=== PATIENT | male | born 1950 | race Two or more races ===

== ENCOUNTER 2020-09-08 12:40 | Inpatient (IN) | payer BC, OTHER ==
[~2020-09-08] VITALS: Ht 165.1 cm; Wt 74.8 kg
[2020-09-08] MEDS ORDERED: CARVEDILOL25 MG (13:47)
[2020-09-08] MEDS ORDERED: METFORMIN HCL500 M3 (13:48)
[2020-09-08] MEDS ORDERED: LOTREL 10-20 M1 EACH (13:48)
[2020-09-08] MEDS ORDERED: FENOFIBRATE150 MG (13:48)
--- NOTE | 2020-09-08 13:49 | NUR ---
SE RECIBE PTE. MASCULINO ALERTA CONCIENTE Y ORIENTADO EN COMPANIA DE FAMILIAR PTE. REFIERE TOS JAQUELIN SUDORACION ESCALOFRIOS NAUSEAS. LE COMENZARON SINTOMAS E9 DE NOVIEMBRE Y FUE DX. COVI POSITIVO POR VIA NASAL MERA NO CALDERON NATY.
--- NOTE | 2020-09-08 15:49 | NUR ---
PACIENTE ALERTA Y ORIENTADO EN TIEMPO LUGAR Y PERSONA. RN DANIEL ORIENTA SOBRE TRATAMIENDO ORDENADO, EL MISMO VERBALIZA ENTENDER. RN COLECTA MUESTRAS ORDENADAS HACIENDO USO DE MEDIDAS ASEPTICAS CORRESPONDIENTES. PTE EN ESPERA DE RESULTADOS PARA RE-EVALUACION MEDICA Y ESTUDIO CT. SE MANTIENE EN OBSERVACION POR CAMBIOS EN MUKHERJEE CONDICION.
== END 2020-09-15 12:29 | disposition home or self-care (01) | DRG 177 ==
LOC: ER 12:40 → MEDJ 22:12
PROVIDERS: ADMIT Internal Medicine; ATTEND Internal Medicine
PROC: BW24ZZZ Computerized Tomography (CT Scan) of Chest and Abdomen (ICD-10-PCS; 2020-09-08)
PROC: 3E0F7SF Introduction of Other Gas into Respiratory Tract, Via Natural or Artificial Opening (ICD-10-PCS; 2020-09-09)
PROC: XW043E5 Introduction of Remdesivir Anti-infective into Central Vein, Percutaneous Approach, New Technology Group 5 (ICD-10-PCS; principal; 2020-09-10)
PROC: 4A12X4Z Monitoring of Cardiac Electrical Activity, External Approach (ICD-10-PCS; 2020-09-10)
DX: U07.1 COVID-19 (principal); J12.89 Other viral pneumonia; E86.0 Dehydration; E78.5 Hyperlipidemia, unspecified; I10 Essential (primary) hypertension; E11.9 Type 2 diabetes mellitus without complications